=== PATIENT | male | born 1955 | race Caucasian/White ===

== ENCOUNTER 2017-06-08 11:04 | Emergency (ER) | payer BC ==
[2017-06-08 11:26] VITALS: BP 140/78
[2017-06-08] MEDS ORDERED: diphenhydrAMINE HCL 50 MG/ML VIAL IM ONE (12:20)
[2017-06-08] MEDS ORDERED: METHYLPREDNISOLONE ACETATE 80 MG/ML VIAL IM ONE (12:20)
[2017-06-08] MEDS ORDERED: METHYLPREDNISOLONE SOD SUCC/PF 40 MG/ML VIAL ONE (12:30)
[2017-06-08] MEDS ORDERED: diphenhydrAMINE HCL 50 MG/ML VIAL ONE (12:30)
[2017-06-08] MEDS ORDERED: METHYLPREDNISOLONE ACETATE 80 MG/ML VIAL ONE (12:31)
--- NOTE | 2017-06-08 12:32 | ERNOTE ---
Integumentary HPI - Narrative Date of Service: 06/08/17 - General Presenting Symptoms: rash Time Seen by Provider: 06/08/17 12:13 Source: patient Exam Limitations: no limitations - Immun/Allergies/Home Medications Immunizations: IMMUNIZATION HX Immunizations Up to Date Yes History of Influenza Vaccine No Hx Pneumococcal Vaccination No Allergies/Adverse Reactions: Allergies Allergy/AdvReac Type Severity Reaction Status Date / Time Penicillins Allergy Intermediate Vomiting Verified 06/08/17 11:29 Home Medications: HOME MEDICATIONS Aspirin [Aspirin Enteric Coated] 325 mg PO DAILY 06/08/17 [Last Taken Unknown] Gabapentin [Neurontin] 300 mg PO DAILY 06/08/17 [Last Taken Unknown] Metoprolol Succinate 50 mg PO DAILY 06/08/17 [Last Taken Unknown] Nortriptyline HCl [Pamelor] 25 mg PO DAILY 06/08/17 [Last Taken Unknown] Pravastatin Sodium 40 mg PO DAILY 06/08/17 [Last Taken Unknown] Sertraline HCl [Zoloft] 100 mg PO DAILY 06/08/17 [Last Taken Unknown] metFORMIN HCL [Metformin HCl ER] 500 mg PO DAILY 06/08/17 [Last Taken Unknown] predniSONE [Prednisone] 3 tab PO DAILY #9 tab 06/08/17 [Last Taken Unknown] - History of Present Illness Narrative: Pt. comes in with c/o rash that started this morning. Pt. states that when he awoke at 0600 this morning he noticed it on his dorsal R hand and then noticed throughout the day since that he also had hives on his neck and back. Pt. states that he was started on Cipro and Flagyl a week ago. Pt. 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 Review of Systems - Review of Systems Constitutional: Present: no symptoms reported. Absent: recent illness, fever, chills, weakness, fatigue, malaise EYE: Present: no symptoms reported ENT: Present: no symptoms reported. Absent: nose congestion, throat swelling Respiratory: Present: no symptoms reported. Absent: shortness of breath, cough , wheezing Cardiology: Present: no symptoms reported. Absent: chest pain, palpitations, edema Gastrointestinal/Abdominal: Present: no symptoms reported Genitourinary: Present: no symptoms reported Musculoskeletal: Present: no symptoms reported Skin: Present: rash - R dorsal hand, post neck and post back Neurological: Present: no symptoms reported. Absent: headache, dizziness/light- headedness, numbness, tingling All Other Systems: All systems neg except as marked - Patient's Past Medical History Patient History - Medical: Diabetes Type 2 Patient History - Cardiac/Respiratory: Hypertension, Hyperlipidemia Patient History - Cancer: No Hx of Cancer Patient History - Surgical Procedures: Appendectomy, Back Surgery, Cholecystectomy, Orthopedic Patient History - Other: None - Social History Psych History: Hx of Depression Smoking Status: Current every day smoker Have you smoked in the past 12 months: Yes - Immunizations Immunizations Up to Date: Yes Hx Pneumococcal Vaccination: No History of Influenza Vaccine: No Physical Exam - Physical Exam General Appearance: Present: wd/wn, alert, no apparent distress Head Exam: Present: normal inspection, no evidence of injury Eye Exam: Normal inspection: bilateral, PERRL: bilateral, EOMI: bilateral Ears, Nose, Throat: Present: normal ENT inspection, normal pharynx Neck: Present: nontender, supple, full range of motion. Absent: lymphadenopathy (R), lymphadenopathy (L), tender lateral, tender posterior midline Respiratory: Present: no respiratory distress, normal breath sounds, no accessory muscle use, chest nontender, lungs clear Cardiovascular/Chest: Present: regular rate, rhythm, no murmur, normal peripheral pulses Back Exam: Present: normal range of motion, no CVA tenderness, no vertebral tenderness Extremity Exam: Present: non-tender, normal range of motion, no edema Neurological Exam: Present: alert, oriented, normal mood/affect, no motor/ sensory deficits Skin Exam: Present: skin rash - hivelike rash on L dorsal hand and post neck and post upper back ED Progress - Vital Signs Patient's Vital Signs:: I have reviewed the patient's vital signs. Vital Signs: Vital Signs 06/08/17 11:21 Temperature 37.6 C H Pulse Rate 80 Respiratory 20 Rate Blood Pressure 140/78 O2 Sat by Pulse 98 Oximetry - Progress/Reassessment Chief Complaint: Rash Departure Clinical Impression: Hives of unknown origin - Departure Disposition: Home self-care Condition: Good Instructions: Pruritus, Hives, [id number] Additional Instructions: Please follow up with primary provider in 2-3 days. Continue Benadryl every six hours until rash resolves. Referrals: Genevieve Vicente, [employer] [Primary Care Provider] - Prescriptions: predniSONE [Prednisone] 3 tab PO DAILY #9 tab
== END 2017-06-08 13:08 | disposition home or self-care (01) ==
LOC: ER 11:04
DX: L50.9 Urticaria, unspecified (principal); E11.9 Type 2 diabetes mellitus without complications; I10 Essential (primary) hypertension; E78.5 Hyperlipidemia, unspecified; F17.200 Nicotine dependence, unspecified, uncomplicated